=== PATIENT | female | born 1995 | race Caucasian/White ===

== ENCOUNTER 2022-04-16 19:02 | Emergency (ER) | payer SELFPAY ==
[2022-04-16 20:25] LABS: Absolute Lymphocytes (CBC) 3.3 K/uL (0.7-4.9); Lymphocytes % 33.8 % (15.3-44.8); MCV 91.5 fL (80-100); RBC Red Blood Cell Count 3.72 M/uL (3.86-4.86)
[2022-04-16 20:32] LABS: ALT/SGPT 16 U/L (12-78); AST/SGOT 14 U/L (15-37); Albumin 4.3 g/dL (3.4-5.0); Alkaline Phosphatase 63 U/L (45-117); BUN Blood Urea Nitrogen 24 mg/dL (7-18); Bicarbonate 28 mmol/L (21-32); Bilirubin Total 0.2 mg/dL (0.2-1.0); Glomerular Filtration Rate 87 ml/min (=/>90); Glucose Level 90 mg/dL (74-106); Magnesium 2.1 mg/dL (1.8-2.4); NT PRO-BNP 48 pg/mL (<125); Potassium 3.5 mmol/L (3.5-5.1); Protein, Total 7.1 g/dL (6.4-8.2); Sodium Level 137 mmol/L (136-145)
[2022-04-16 20:38] LABS: Protime INR 1.12
[2022-04-16 20:39] LABS: Bilirubin Direct < 0.1 mg/dL (0-0.2); Troponin High Sensitivity < 3.0 pg/mL (<58.9)
--- NOTE | 2022-04-16 20:40 | RAD REPORT ---
EXAM DESCRIPTION: RAD - Chest Single View - 04/16/2022 8:18 pm CLINICAL HISTORY: CHEST PAIN COMPARISON: No comparisons FINDINGS: Lines: None. Lungs: No evidence of edema or pneumonia. Pleural: No significant pleural effusions or pneumothorax. Cardiac: The heart size is within normal limits. Mediastinum: Within normal limits. Bones: No acute fractures. Other: None IMPRESSION: No acute cardiopulmonary disease.
--- NOTE | 2022-04-16 21:33 | ER ---
Nurse's Notes [facility] Name: Elena Prescott Age: 26 yrs Sex: Female : 1995 Arrival Date: 04/16/2022 Time: 19:08 Bed 11 Private MD: Diagnosis: Chest pain, unspecified Presentation: 04/16 19:20 Chief complaint: Patient states: 1200 today - "I was at work, I began to feel SOB and ld1 having chest pain." Upon arrival to ER pt SpO2 100% RA. Reporting dull continuous chest pain at this time. 19:27 Coronavirus screen: At this time, the client does not indicate any symptoms associated ld1 with coronavirus-19. Ebola Screen: No symptoms or risks identified at this time. Initial Sepsis Screen: Does the patient meet any 2 criteria? No. Patient's initial sepsis screen is negative. Does the patient have a suspected source of infection? No. Patient's initial sepsis screen is negative. Risk Assessment: Do you want to hurt yourself or someone else? Patient reports no desire to harm self or others. Onset of symptoms was April 16, 2022. 19:27 Method Of Arrival: Ambulatory ld1 19:27 Acuity: MILDRED 3 ld1 Triage Assessment: 19:28 General: Appears in no apparent distress. comfortable, Behavior is cooperative, ld1 appropriate for age, anxious. Pain: Complains of pain in chest Pain does not radiate. Pain currently is 4 out of 10 on a pain scale. Quality of pain is described as throbbing, Pain began suddenly, Is continuous. EENT: No signs and/or symptoms were reported regarding the EENT system. Neuro: Level of Consciousness is awake, alert, obeys commands, Oriented to person, place, time, situation. Cardiovascular: Capillary refill < 3 seconds Patient's skin is warm and dry. Respiratory: Reports shortness of breath at rest on exertion Airway is patent Respiratory effort is even, unlabored. Respiratory: Onset: The symptoms/episode began/occurred today, the patient has mild shortness of breath. GI: Abdomen is flat, non-distended. : No signs and/or symptoms were reported regarding the genitourinary system. Derm: No signs and/or symptoms reported regarding the dermatologic system. Musculoskeletal: Reports pain in chest. 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 - Social history:: Smoking status: Reported history of juuling and/or vaping. Patient/guardian denies using alcohol. Screenin:08 Abuse screen: Denies threats or abuse. Denies injuries from another. Nutritional eh3 screening: No deficits noted. Tuberculosis screening: No symptoms or risk factors identified. Fall Risk None identified. Assessment: 20:08 General: Appears in no apparent distress. Behavior is calm, cooperative. Pain: eh3 Complains of pain in chest. Neuro: Level of Consciousness is awake, alert. Cardiovascular: Reports chest pain, Rhythm is regular. Respiratory: Reports shortness of breath Respiratory effort is even, unlabored, Breath sounds are clear. Vital Signs: 19:27 BP 128 / 78; Pulse 105; Resp 18; Temp 98.4(O); Pulse Ox 100% on R/A; Weight 45.36 kg; ld1 Height 5 ft. 1 in. (154.94 cm); Pain 4/10; 21:49 BP 101 / 72; Pulse 80; Resp 21 S; Pulse Ox 100% on R/A; as6 19:27 Body Mass Index 18.89 (45.36 kg, 154.94 cm) ld1 ED Course: 19:08 Patient arrived in ED. bp1 19:09 Lorenzo Ramirez PA is PHCP. jmm 19:09 Jovany Clemente MD is Attending Physician. jmm 19:20 Elías Cobian, TANK is Primary Nurse. as6 19:27 Triage completed. ld1 19:28 Arm band placed on right wrist. ld1 20:00 Inserted saline lock: 20 gauge in right antecubital area, using aseptic technique. eh3 Blood collected. 20:07 D-Dimer Sent. eh3 20:07 Basic Metabolic Panel Sent. eh3 20:07 CBC with Diff Sent. eh3 20:07 LFT's Sent. eh3 20:07 Magnesium Sent. eh3 20:07 NT PRO-BNP Sent. eh3 20:07 PT-INR Sent. eh3 20:07 Troponin HS Sent. eh3 20:08 Bed in low position. Call light in reach. Side rails up X 1. Client placed on eh3 continuous cardiac and pulse oximetry monitoring. NIBP monitoring applied. 20:20 XRAY Chest (1 view) In Process Unspecified. EDMS 21:33 Herb Bahena MD is Referral Physician. jmm 21:47 No provider procedures requiring assistance completed. IV discontinued, intact, as6 bleeding controlled, No redness/swelling at site. Pressure dressing applied. Administered Medications: 21:47 Drug: Ketorolac 30 mg Route: IVP; Site: right antecubital; as6 21:47 Follow up: Response: No adverse reaction as6 Medication: 21:48 VIS not applicable for this client. as6 Outcome: 21:33 Discharge ordered by . jmm 21:48 Discharged to home ambulatory. as6 21:48 Condition: stable 21:48 Discharge instructions given to patient, Instructed on discharge instructions, follow up and referral plans. medication usage, Demonstrated understanding of instructions, follow-up care, medications, Prescriptions given X 3. 21:49 Patient left the ED. as6 Signatures: Dispatcher [employer] EDMS Lorenzo Ramirez PA PA jmm Paniauga, Brittany bp1 Dibbern, Lauren, TANK RN ld1 Elías Cobian RN RN as6 Delicia Jj RN RN eh3
--- NOTE | 2022-04-16 21:34 | EDPHYS ---
Physician Documentation [facility] Name: Elena Prescott Age: 26 yrs Sex: Female : 1995 Arrival Date: 04/16/2022 Time: 19:08 Bed 11 Private MD: BRADLEY Physician Jovany Clemente HPI: 04/16 21:25 This 26 yrs old Female presents to ER via Ambulatory with complaints of Breathing jmm Difficulty, Doesn't Feel Right. 23:17 This is a 26-year-old female with history of ADD that presents emerged part with [facility] complaints of chest pain and palpitations beginning earlier today. Describes the pain as an ache. States she also has shortness of breath and numbness to her face, both hands. Denies any history of anxiety.. 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 - Social history:: Smoking status: Reported history of juuling and/or vaping. Patient/guardian denies using alcohol. ROS: 23:17 Constitutional: Negative for fever, chills, and weight loss. jmm 23:17 Cardiovascular: Positive for chest pain. 23:17 Respiratory: Positive for shortness of breath. 23:17 Neuro: Positive for numbness. 23:17 All other systems are negative. Exam: 21:26 ECG was reviewed by the Attending Physician. jmm 23:17 Constitutional: This is a well developed, well nourished patient who is awake, alert, jmm and in no acute distress. Head/Face: atraumatic. Eyes: EOMI, no conjunctival erythema appreciated ENT: Moist Mucus Membranes Neck: Trachea midline, Supple Chest/axilla: Normal chest wall appearance and motion. Cardiovascular: Regular rate and rhythm. No edema appreciated Respiratory: Normal respirations, no respiratory distress appreciated Abdomen/GI: Non distended Back: Normal ROM Skin: General appearance color normal MS/ Extremity: Moves all extremities, no obvious deformities appreciated, no edema noted to the lower extremities Neuro: Awake and alert Psych: Behavior is normal, Mood is normal, Patient is cooperative and pleasant Vital Signs: 19:27 BP 128 / 78; Pulse 105; Resp 18; Temp 98.4(O); Pulse Ox 100% on R/A; Weight 45.36 kg; ld1 Height 5 ft. 1 in. (154.94 cm); Pain 4/10; 21:49 BP 101 / 72; Pulse 80; Resp 21 S; Pulse Ox 100% on R/A; as6 19:27 Body Mass Index 18.89 (45.36 kg, 154.94 cm) ld1 MDM: 19:21 Patient medically screened. janes 21:32 Data reviewed: vital signs, nurses notes. Counseling: I had a detailed discussion with [facility] the patient and/or guardian regarding: the historical points, exam findings, and any diagnostic results supporting the discharge/admit diagnosis, lab results, radiology results, the need for outpatient follow up, to return to the emergency department if symptoms worsen or persist or if there are any questions or concerns that arise at home. 21:32 ED course: Labs and imaging studies were negative. Patient advised to follow with [facility] cardiology for further evaluation. I do not currently suspect ACS or PE. Patient is advised to return to the ER if symptoms worsen.. 04/16 19:37 Order name: Basic Metabolic Panel; Complete Time: 20:43 [facility] 04/16 19:37 Order name: CBC with Diff; Complete Time: 20:43 [facility] 04/16 19:37 Order name: LFT's; Complete Time: 20:43 [facility] 04/16 19:37 Order name: Magnesium; Complete Time: 20:43 [facility] 04/16 19:37 Order name: NT PRO-BNP; Complete Time: 20:43 [facility] 04/16 19:37 Order name: PT-INR; Complete Time: 20:43 [facility] 04/16 19:37 Order name: Troponin HS; Complete Time: 20:43 [facility] 04/16 19:37 Order name: XRAY Chest (1 view); Complete Time: 20:43 [facility] 04/16 19:37 Order name: EKG; Complete Time: 19:38 [facility] 04/16 19:37 Order name: Cardiac monitoring; Complete Time: 20:07 [facility] 04/16 19:37 Order name: EKG - Nurse/Tech; Complete Time: 20: [facility] 04/16 19:37 Order name: IV Saline Lock; Complete Time: 20: [facility] 04/16 19:37 Order name: D-Dimer; Complete Time: 20: [facility] 04/16 19:37 Order name: Labs collected and sent; Complete Time: 20: [facility] 04/16 19:37 Order name: O2 Per Protocol; Complete Time: 20: [facility] 04/16 19:37 Order name: O2 Sat Monitoring; Complete Time: : [facility] EC: Rate is 88 beats/min. Rhythm is regular. QRS [place] is Normal. LA interval is normal. QRS jmm interval is normal. QT interval is normal. No Q waves. T waves are Normal. No ST changes noted. Reviewed by me. Administered Medications: :47 Drug: Ketorolac 30 mg Route: IVP; Site: right antecubital; as6 21:47 Follow up: Response: No adverse reaction as6 Disposition Summary: 04/16/22 21:33 Discharge Ordered Location: Home [facility] Condition: Stable [facility] Diagnosis - Chest pain, unspecified [facility] Followup: [facility] - With: Herb Bahena MD - When: 2 - 3 days - Reason: Recheck today's complaints, Continuance of care, Re-evaluation by your physician Discharge Instructions: - Discharge Summary Sheet [facility] - Nonspecific Chest Pain, Adult [facility] Forms: - Medication Reconciliation Form [facility] - Thank You Letter [facility] - Antibiotic Education [facility] - Prescription Opioid Use [facility] Prescriptions: - Pepcid 20 mg Oral Tablet - take 1 tablet by ORAL route every 12 hours for 10 days; 20 tablet; Refills: 0, [facility] Product Selection Permitted - Diclofenac Sodium 75 mg Oral Tablet Sustained Release - take 1 tablet by ORAL route 2 times per day; 30 tablet; Refills: 0, Product [facility] Selection Permitted - orphenadrine citrate 100 mg Oral Tablet Sustained Release - take 1 tablet by ORAL route 2 times per day As needed; 20 tablet; Refills: 0, [facility] Product Selection Permitted Signatures: Dispatcher [employer] Jovany Azul MD MD cha Mickail, Joel, PA PA [facility] Demi Hahn RN RN ld1 Elías Cobian RN RN as6
[2022-04-16] MEDS ORDERED: KETOROLAC 30 MG/ML INJ ONE (21:52)
[2022-04-16 22:37] VITALS: TEMP 98.4; O2SAT 100
[2022-04-16 22:53] VITALS: BP 101/72
== END 2022-04-16 21:49 | disposition home or self-care (01) ==
LOC: ER 19:02
DX: R07.89 Other chest pain (principal); R06.02 Shortness of breath
CPT/HCPCS: 36415; 71045; 80048; 80076; 83735; 83880; 84484; 85025; 85379; 85610

== ENCOUNTER 2022-09-12 20:33 | Emergency (ER) | payer SELFPAY ==
[2022-09-12] MEDS ORDERED: ONDANSETRON 4 MG (ODT) TAB ONE (22:01)
[2022-09-12] MEDS ORDERED: MAGNES/ALUMIN/SIMET 30ML UCUP ONE (22:01)
[2022-09-12] MEDS ORDERED: ACETAMINOPHEN 500 MG TAB ONE (22:01)
[2022-09-12] MEDS ORDERED: LIDOCAINE VISCOUS 2% SOLN 15 ML UDC ONE (22:01)
--- NOTE | 2022-09-12 22:09 | ER ---
Nurse's Notes [facility] Name: Elena Prescott Age: 26 yrs Sex: Female : 1995 Arrival Date: 09/12/2022 Time: 20:38 Bed 13 Private MD: Diagnosis: Contact with and (suspected) exposure to hazardous, chiefly nonmedicinal, chemicals Presentation: 09/12 21:08 Chief complaint: Patient states: "Yesterday at work I inhaled some floorhand, It is vc1 called Arapaho's solution, it is like a chlorine salt, my boss said I should be fine but now I am having a migraine, nausea, vomiting, my nose all the way to my throat ring and abdominal discomfort.". Coronavirus screen: Vaccine status: Patient reports being unvaccinated. Client denies travel out of the [place] in the last 14 days. At this time, the client does not indicate any symptoms associated with coronavirus-19. Ebola Screen: No symptoms or risks identified at this time. 21:08 Method Of Arrival: Ambulatory vc1 21:35 Initial Sepsis Screen: Does the patient meet any 2 criteria? No. Patient's initial aa9 sepsis screen is negative. Does the patient have a suspected source of infection? No. Patient's initial sepsis screen is negative. Risk Assessment: Do you want to hurt yourself or someone else? Patient reports no desire to harm self or others. Onset of symptoms was September 12, 2022. 21:35 Acuity: MILDRED 3 aa9 Triage Assessment: 21:31 General: Appears in no apparent distress. uncomfortable, slender, Behavior is vc1 cooperative, anxious. Pain: Complains of pain in forehead, bridge of nose, apex of the nose and left upper quadrant. EENT: Reports nasal and throat burning. Neuro: No deficits noted. Cardiovascular: No deficits noted. Respiratory: Airway is patent Respiratory effort is even, unlabored, Respiratory pattern is regular, symmetrical. GI: Reports lower abdominal pain, nausea, vomiting. : No deficits noted. No signs and/or symptoms were reported regarding the genitourinary system. Derm: No deficits noted. No signs and/or symptoms reported regarding the dermatologic system. Musculoskeletal: No deficits noted. No signs and/or symptoms reported regarding the musculoskeletal system. 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 - Social history:: Smoking status: Reported history of juuling and/or vaping. Screenin:35 [facility] ED Fall Risk Assessment (Adult) History of falling in the last 3 months, aa9 including since admission No falls in past 3 months (0 pts) Confusion or Disorientation No (0 pts) Intoxicated or Sedated No (0 pts) Impaired Gait No (0 pts) Mobility Assist Device Used No (0 pt) Altered Elimination No (0 pt) Score/Fall Risk Level 0 - 2 = Low Risk Oriented to surroundings, Maintained a safe environment. Abuse screen: Denies threats or abuse. Denies injuries from another. Nutritional screening: Has had N/V for 3 or more days. Tuberculosis screening: No symptoms or risk factors identified. Assessment: 21:13 Reassessment: poison controlled notified spoke to [place], suggested supportive care for aa9 headache and vomiting, most likely unrelated to the event, . 22:21 Reassessment: Patient appears in no apparent distress at this time. Patient is alert, aa9 oriented x 3, equal unlabored respirations, skin warm/dry/pink. Patient denies pain at this time. Patient states feeling better. Vital Signs: 21:30 BP 108 / 73; Pulse 85; Resp 20 S; Pulse Ox 100% on R/A; aa9 21:33 BP 116 / 87; Pulse 86; Resp 20; Temp 98.4; Pulse Ox 100% ; vc1 21:45 BP 104 / 76; Pulse 82; Resp 19 S; Pulse Ox 98% on R/A; aa9 ED Course: 20:38 Patient arrived in ED. ja2 20:59 Giancarlo Cross NP is PHCP. pm1 20:59 Torrey Castro MD is Attending Physician. pm1 21:08 Lisa Cardoza, TANK is Primary Nurse. aa9 21:31 Arm band placed on right wrist. vc1 21:36 Triage completed. aa9 21:36 Patient has correct armband on for positive identification. Bed in low position. Call aa9 light in reach. Adult w/ patient. 22:20 No provider procedures requiring assistance completed. Patient did not have IV access aa9 during this emergency room visit. Administered Medications: 22:06 Drug: GI Cocktail without - (Maalox Suspension 30 ml, Lidocaine Liquid 2 % 15 aa9 ml) Route: PO; 22:06 Drug: Ondansetron 4 mg Route: PO; aa9 22:06 Drug: Tylenol 500 mg Route: PO; aa9 Medication: 21:36 VIS not applicable for this client. aa9 Outcome: 22:08 Discharge ordered by MD. pm1 22:21 Discharged to home ambulatory, with family. aa9 22:21 Condition: stable 22:21 Condition: stable 22:21 Discharge instructions given to patient, Instructed on discharge instructions, follow up and referral plans. medication usage, Demonstrated understanding of instructions, follow-up care, medications, Prescriptions given X 1. 22:21 Patient left the ED. aa9 Signatures: Giancarlo Cross NP [employer] pm1 Jennifer Shook Vanessa, RN RN vc1 Lisa Cardoza, RN RN aa9 Corrections: (The following items were deleted from the chart) 21:31 21:30 Social history: Smoking status: Patient denies any tobacco usage or history of. vc1 vc1
--- NOTE | 2022-09-12 22:10 | EDPHYS ---
Physician Documentation [facility] Name: Elena Prescott Age: 26 yrs Sex: Female : 1995 Arrival Date: 09/12/2022 Time: 20:38 Bed 13 Private MD: ED Physician Torrey Castro HPI: 09/12 21:14 This 26 yrs old Female presents to ER via Ambulatory with complaints of Chemical pm1 Exposure. 21:14 Patient presents to the ER with complaints of exposure to viking solutions cleaning pm1 agent. Patient was preparing this solution to mix it and accidentally inhaled the dust.. Onset: The symptoms/episode began/occurred yesterday. Severity of symptoms: in the emergency department the symptoms have improved. The patient has not experienced similar symptoms in the past. The patient has not recently seen a physician. Patient reports initially having sensation of burning in right nostril, coughing, sore throat, chest pain with inhalation yesterday. Patient reports symptoms today are headache and sore throat. 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 - Social history:: Smoking status: Reported history of juuling and/or vaping. ROS: 21:14 Constitutional: Negative for fever, chills, and weight loss. pm1 21:14 Cardiovascular: Negative for chest pain, palpitations, and edema, Respiratory: Negative for shortness of breath, cough, wheezing, and pleuritic chest pain, Abdomen/GI: Negative for abdominal pain, nausea, vomiting, diarrhea, and constipation, Back: Negative for injury and pain, MS/Extremity: Negative for injury and deformity, Skin: Negative for injury, rash, and discoloration. 21:14 ENT: Positive for sore throat. 21:14 Neuro: Positive for headache. 21:14 All other systems are negative. Exam: 21:14 Constitutional: This is a well developed, well nourished patient who is awake, alert, pm1 and in no acute distress. Head/Face: Normocephalic, atraumatic. Eyes: Pupils equal round and reactive to light, extra-ocular motions intact. Lids and lashes normal. Conjunctiva and sclera are non-icteric and not injected. Cornea within normal limits. Periorbital areas with no swelling, redness, or edema. 21:14 Back: No spinal tenderness. No costovertebral tenderness. Full range of motion. Skin: Warm, dry with normal turgor. Normal color with no rashes, no lesions, and no evidence of cellulitis. MS/ Extremity: Pulses equal, no cyanosis. Neurovascular intact. Full, normal range of motion. 21:14 ENT: Exam is negative for acute changes, Mouth: no acute changes, Lips: normal, moist, Oral mucosa: normal, pink and intact, moist, Posterior pharynx: no acute changes. 21:14 Cardiovascular: Exam negative for acute changes, Rate: normal, Rhythm: regular, Pulses: no pulse deficits are appreciated. 21:14 Respiratory: Exam negative for acute changes, respiratory distress, shortness of breath, Breath sounds: are clear throughout. 21:14 Abdomen/GI: Exam negative for acute changes, Inspection: abdomen appears normal, Palpation: abdomen is soft and non-tender, in all quadrants. 21:14 Neuro: Exam negative for acute changes, Orientation: is normal, Mentation: is normal, Motor: is normal, moves all fours, Gait: is steady, at a normal pace, without difficulty. Vital Signs: 21:30 BP 108 / 73; Pulse 85; Resp 20 S; Pulse Ox 100% on R/A; aa9 21:33 BP 116 / 87; Pulse 86; Resp 20; Temp 98.4; Pulse Ox 100% ; vc1 21:45 BP 104 / 76; Pulse 82; Resp 19 S; Pulse Ox 98% on R/A; aa9 MDM: 21:00 Patient medically screened. pm1 22:05 Differential diagnosis: chemical exposure, pharyngitis, headache, URI. pm1 22:05 Data reviewed: vital signs. pm1 22:05 Counseling: I had a detailed discussion with the patient and/or guardian regarding: the pm1 historical points, exam findings, and any diagnostic results supporting the discharge/admit diagnosis, the need for outpatient follow up, to return to the emergency department if symptoms worsen or persist or if there are any questions or concerns that arise at home, recommendations by poison control. 22:05 Differential Diagnosis pharyngitis, headache, exposure to chemical. pm1 22:25 ED course: Patient explained recommendations from poison control. Symptomatic treatment pm1 for headache and sore throat which they believe is unlikely related to the chemical exposure. Patient given Tylenol for pain, GI cocktail for her sore throat which she reports improved her symptoms. Patient did report some nausea and I will treat with Zofran as needed. 09/12 21:14 Order name: Natasha. Order: Contact poison control; Complete Time: 21:17 pm1 Administered Medications: 22:06 Drug: GI Cocktail without - (Maalox Suspension 30 ml, Lidocaine Liquid 2 % 15 aa9 ml) Route: PO; 22:06 Drug: Ondansetron 4 mg Route: PO; aa9 22:06 Drug: Tylenol 500 mg Route: PO; aa9 Disposition: 09/13 04:30 I reviewed the patient's care provided by the Advanced Practice Provider and agree with bs3 the diagnosis and treatment plan. Disposition Summary: 09/12/22 22:08 Discharge Ordered Location: Home pm1 Problem: new pm1 Symptoms: have improved pm1 Condition: Stable pm1 Diagnosis - Contact with and exposure to nonhazardous cleaning solution pm1 - Contact with and (suspected) exposure to hazardous, chiefly nonmedicinal, chemicals pm1 Followup: pm1 - With: Emergency Department - When: As needed - Reason: Worsening of condition Followup: pm1 - With: Private Physician - When: 2 - 3 days - Reason: Recheck today's complaints, Continuance of care, Re-evaluation by your physician Discharge Instructions: - Discharge Summary Sheet pm1 - Chemical Inhalation Injury, Adult pm1 Forms: - Medication Reconciliation Form pm1 - Thank You Letter pm1 - Antibiotic Education pm1 - Prescription Opioid Use pm1 Prescriptions: - Zofran 4 mg Oral Tablet - take 1 tablet by ORAL route every 12 hours As needed; 6 tablet; Refills: 0, pm1 Product Selection Permitted Signatures: Giancarlo Cross NP FISH CAKE MAKER pm1 Dania Lyman RN RN vc1 Lisa Cardoza RN RN aa9 Torrey Castro MD MD bs3 Corrections: (The following items were deleted from the chart) 09/12 21:31 21:30 Social history: Smoking status: Patient denies any tobacco usage or history of. vc1 vc1
[2022-09-13 01:03] VITALS: TEMP 98.4
[2022-09-13 01:08] VITALS: BP 104/76; O2SAT 98
== END 2022-09-12 22:21 | disposition home or self-care (01) ==
LOC: ER 20:33
DX: Z77.098 Contact with and (suspected) exposure to other hazardous, chiefly nonmedicinal, chemicals (principal)
CPT/HCPCS: 99283; Q0162

== ENCOUNTER 2023-04-22 06:55 | Emergency (ER) | payer BC ==
--- NOTE | 2023-04-22 07:45 | RAD REPORT ---
EXAM DESCRIPTION: CT - Head Brain Wo Cont - 04/22/2023 7:38 am CLINICAL HISTORY: DIZZINESS Headache, drowsiness COMPARISON: No comparisons TECHNIQUE: All CT scans are performed using dose optimization technique as appropriate and may inclu de automated exposure control or mA/KV adjustment according to patient size. FINDINGS: No intracranial hemorrhage, hydrocephalus or extra-axial fluid collection.No areas of brai n edema or evidence of midline shift. The paranasal sinuses and mastoids are clear. The calvarium is intact. IMPRESSION: No acute intracranial abnormality.
[2023-04-22] MEDS ORDERED: NA CHLORIDE 0.9% 1,000 ML ONE (07:55)
--- NOTE | 2023-04-22 08:00 | RAD REPORT ---
EXAM DESCRIPTION: RAD - Chest Single View - 04/22/2023 7:48 am CLINICAL HISTORY: dizziness Chest pain. COMPARISON: Chest Single View dated 04/16/2022 FINDINGS: Portable technique limits examination quality. The lungs are grossly clear. The heart is normal in size. No displaced fractures. IMPRESSION: No acute intrathoracic process suspected.
[2023-04-22 08:18] LABS: Absolute Lymphocytes (CBC) 2.5 K/uL (0.7-4.9); Hematocrit 39.5 % (36.0-45.0); Lymphocytes % 32.3 % (15.3-44.8); MCV 92.4 fL (80-100); MPV 8.1 fL (7.6-11.3); Platelets 275 thou/uL (152-406); RBC Red Blood Cell Count 4.27 M/uL (3.86-4.86)
[2023-04-22 08:19] LABS: Urine Bilirubin NEGATIVE (Negative); Urine Blood Negative (Negative); Urine Clarity Clear (Clear); Urine Color Colorless (Yellow); Urine Glucose NEGATIVE (Negative); Urine Protein NEGATIVE (Negative); Urine Urobilinogen Normal (Normal); Urine pH 7.5 (5.0-7.0)
[2023-04-22 08:26] LABS: Protime INR 1.11
[2023-04-22 08:41] LABS: ALT/SGPT 16 U/L (13-56); AST/SGOT 15 U/L (15-37); Albumin 4.5 g/dL (3.4-5.0); Alkaline Phosphatase 65 U/L (45-117); BUN Blood Urea Nitrogen 11 mg/dL (7-18); Bicarbonate 28 mEq/L (21-32); Bilirubin Direct 0.2 mg/dL (0-0.2); Bilirubin Indirect, Calculated 0.4 mg/dL (0.2-0.8); Bilirubin Total 0.6 mg/dL (0.2-1.0); Glomerular Filtration Rate 92 ml/min (=/>90); Glucose Level 87 mg/dL (74-106); Potassium 3.8 mEq/L (3.5-5.1); Protein, Total 7.4 g/dL (6.4-8.2); Sodium Level 137 mEq/L (136-145)
[2023-04-22 08:43] LABS: Troponin High Sensitivity < 3.0 pg/mL (<58.9)
[2023-04-22 08:48] LABS: SARS-CoV-2 Antigen Rapid Res Negative (Negative)
--- NOTE | 2023-04-22 09:52 | EDPHYS ---
Physician Documentation [facility] Name: Elena Prescott Age: 27 yrs Sex: Female : 1995 Arrival Date: 04/22/2023 Time: 06:55 Bed 5 Private MD: ED Physician Brigido Roberts HPI: 04/22 07:46 This 27 yrs old Female presents to ER via Ambulatory with complaints of Weakness, rn dizziness. 07:46 The patient presents with dizziness, feeling faint, generalized weakness, rn lightheadedness. Onset: The symptoms/episode began/occurred last night. Modifying factors: The symptoms are alleviated by nothing, the symptoms are aggravated by standing up, changing position. Associated signs and symptoms: Pertinent negatives: abdominal pain, ataxia, chest pain, confusion, focal weakness, head injury, seizure, shortness of breath, syncope, tingling, vomiting. Severity of symptoms: At their worst the symptoms were mild in the emergency department the symptoms are unchanged. The patient has not experienced similar symptoms in the past. Patient reports feeling dizzy and lightheaded since last night. Began after eating a meal with spicy food. Denies blood in stool or dark black stool. No fever. No chills. Reports headache/malaise/fatigue/dizziness/nausea. No head injury. 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 No chest pain or shortness of breath. No abdominal pain.. Historical: - Allergies: 07:08 No Known Allergies; ll1 - PMHx: 07:08 ADD; ll1 - PSHx: 07:08 None; ll1 - Immunization history:: Adult Immunizations up to date. - Social history:: Smoking status: Reported history of juuling and/or vaping. - Family history:: not pertinent. - Hospitalizations: : No recent hospitalization is reported. ROS: 07:46 Constitutional: Negative for fever, chills, and weight loss, Eyes: Negative for injury, rn pain, redness, and discharge, Neck: Negative for injury, pain, and swelling, Cardiovascular: Negative for chest pain, palpitations, and edema, Respiratory: Negative for shortness of breath, cough, wheezing, and pleuritic chest pain, Abdomen/GI: Positive for nausea, negative for abdominal pain Back: Negative for injury and pain, MS/Extremity: Negative for injury and deformity, Skin: Negative for injury, rash, and discoloration, Neuro: Positive for generalized weakness Exam: 07:46 Constitutional: This is a well developed, well nourished patient who is awake, alert, rn and in no acute distress. Ambulatory to room without difficulty or assistance Head/Face: Normocephalic, atraumatic. Eyes: Pupils equal round and reactive to light, extra-ocular motions intact. ENT: Dry mucous membranes, no stridor Neck: No Meningismus. Cardiovascular: Regular rate and rhythm. No pulse deficits. Respiratory: No increased work of breathing, no retractions or nasal flaring. Abdomen/GI: Soft, non-tender Skin: Warm, dry MS/ Extremity: Pulses equal, no cyanosis. Neurovascular intact. Full, normal range of motion. Equal circumference. Neuro: Awake and alert, GCS 15, oriented to person, place, time, and situation. Cranial nerves II-XII grossly intact. Motor strength 5/5 in all extremities. Sensory grossly intact. Cerebellar exam normal. Normal gait. 08:40 ECG was reviewed by the Attending Physician. rn Vital Signs: 07:08 BP 115 / 83; Pulse 83; Resp 16; Temp 98.5; Pulse Ox 100% on R/A; ll1 08:18 BP 123 / 79 Supine; Pulse 76; Resp 19; Pulse Ox 100% ; ld1 08:20 BP 114 / 75 Sitting; Pulse 74; Resp 19; Pulse Ox 100% on R/A; ld1 08:22 BP 121 / 81 Standing; Pulse 74; Resp 16; Pulse Ox 100% on R/A; ld1 09:02 BP 103 / 84; Pulse 63; Resp 18; Pulse Ox 100% on R/A; ld1 NIH Stroke Scale Scores: 08:36 NIHSS Score: 0 ld1 MDM: 07:02 Patient medically screened. rn 09:35 Differential diagnosis: cardiac arrhythmia, generalized weakness, hyperventilation, rn hypovolemia, idiopathic dizziness, near-syncope, vertigo. Data reviewed: vital signs, nurses notes, lab test result(s), EKG, radiologic studies, CT scan, plain films, and as a result, I will discharge patient. Counseling: I had a detailed discussion with the patient and/or guardian regarding the historical points, exam findings, and any diagnostic results supporting the discharge/admit diagnosis, lab results, radiology results, the need for outpatient follow up, to return to the emergency department if symptoms worsen or persist or if there are any questions or concerns that arise at home. Special discussion: I discussed with the patient/guardian in detail that at this point there is no indication for admission to the hospital. It is understood, however, that if the symptoms persist or worsen the patient needs to return immediately for re-evaluation. 04/22 07:13 Order name: Basic Metabolic Panel; Complete Time: 08:46 04/22 07:13 Order name: CBC with Diff; Complete Time: 08:04/22 07:13 Order name: Hepatic Function; Complete Time: 08:46 04/22 07:13 Order name: Magnesium; Complete Time: 08:04/22 07:13 Order name: Test, Urine; Complete Time: 08:04/22 07:13 Order name: Protime (+inr); Complete Time: 08:46 04/22 07:13 Order name: Ptt, Activated; Complete Time: 08:04/22 07:13 Order name: Troponin High Sensitivity; Complete Time: 08:04/22 07:13 Order name: Urinalysis w/ reflexes; Complete Time: 08:46 04/22 07:13 Order name: SARS RAPID; Complete Time: 08:51 04/22 07:13 Order name: Flu; Complete Time: 08:51 04/22 07:13 Order name: CT Head Brain wo Cont; Complete Time: 08:11 04/22 07:13 Order name: Chest Single View XRAY; Complete Time: 08:11 04/22 07:13 Order name: EKG; Complete Time: 07:14 04/22 07:13 Order name: Cardiac monitoring; Complete Time: 08:04 04/22 07:13 Order name: EKG - Nurse/Tech; Complete Time: 08:05 04/22 07:13 Order name: IV Saline Lock; Complete Time: 08:04 04/22 07:13 Order name: Labs collected and sent; Complete Time: 08:04 04/22 07:13 Order name: O2 Per Protocol; Complete Time: 07:37 04/22 07:13 Order name: O2 Sat Monitoring; Complete Time: 07:37 04/22 07:13 Order name: Orthostatics; Complete Time: 08:36 rn EC:40 Rate is 76 beats/min. Rhythm is regular. Right axis deviation noted. QRS is positive in rn lead aVF and negative in lead I. IL interval is normal. QRS interval is normal. QT interval is normal. No Q waves. T waves are Normal. No ST changes noted. Clinical impression: NSR w/ Non-specific ST/T Changes. Reviewed by me. Administered Medications: 08:17 Drug: NS 0.9% IV 1000 ml Route: IV; Rate: 1000 ml; Site: right antecubital; ld1 Disposition Summary: 04/22/23 09:51 Discharge Ordered Location: Home rn Problem: new rn Symptoms: have improved rn Condition: Stable rn Diagnosis - Dizziness and giddiness rn Followup: rn - With: Private Physician - When: As needed - Reason: Recheck today's complaints, Re-evaluation by your physician Discharge Instructions: - Discharge Summary Sheet rn - Dizziness rn Forms: - Medication Reconciliation Form rn - Thank You Letter rn - Antibiotic real estate intern - Prescription Opioid Use rn - Patient Portal Instructions rn - Leadership Thank You Letter rn - Work release form ll1 NIH Stroke Scale - NIH Stroke Score Date: 04/22/2023 Time: 08:36 Total Score = 0 10. Dysarthria (speech clarity - read or repeat words) - 0(Normal) 11. Extinction and Inattention (visual/tactile/auditory/spatial/personal) - 0(No abnormality) 1a. Level of Consciousness (LOC) - 0(Alert) 1b. Level of Consciousness (LOC) (Month \T\ Age) - 0(Both) 1c. LOC Commands (Open \T\ Closes Eyes/Recruiter Account Manager) - 0(Both) 2. Best Gaze (Lateral Gaze Paresis) - 0(Normal) 3. Visual Field Loss - 0(No visual loss) 4. Facial Palsy - 0(Normal) 5a. Left Arm: Motor (10-second hold) - 0(No drift) 5b. Right Arm: Motor (10-second hold) - 0(No drift) 6a. Left Leg: Motor (5-second hold - always test supine) - 0(No drift) 6b. Right Leg: Motor (5-second hold - always test supine) - 0(No drift) 7. Limb Ataxia (finger/nose \T\ heel/frazier - test with eyes open) - 0(Absent) 8. Sensory Loss (pinprick arms/legs/face) - 0(Normal) 9. Best Language: Aphasia (description/naming/reading) - 0(No aphasia) Initials: ld1 Signatures: Dispatcher [employer] Brigido Corea MD MD rn Lewis, Lynsay, RN RN ll1 Demi Frederick RN RN ld1
--- NOTE | 2023-04-22 09:52 | ER ---
Nurse's Notes [facility] Name: Elena Prescott Age: 27 yrs Sex: Female : 1995 Arrival Date: 04/22/2023 Time: 06:55 Bed 5 Private MD: Diagnosis: Dizziness and giddiness Presentation: 04/22 07:08 Chief complaint: Patient states: Feels weak, imbalanced since last night. States eats ll1 too much salty foods, some nausea. Coronavirus screen: Client denies travel out of the [place] in the last 14 days. At this time, the client does not indicate any symptoms associated with coronavirus-19. Ebola Screen: Patient denies travel to an Ebola-affected area in the 21 days before illness onset. No acute neurological deficit is noted. Initial Sepsis Screen: Does the patient meet any 2 criteria? No. Patient's initial sepsis screen is negative. Does the patient have a suspected source of infection? No. Patient's initial sepsis screen is negative. Risk Assessment: Do you want to hurt yourself or someone else? Patient reports no desire to harm self or others. Onset of symptoms. 07:08 Method Of Arrival: Ambulatory ll1 07:08 Acuity: MILDRED 3 ll1 Triage Assessment: 07:11 General: Appears in no apparent distress. Behavior is calm, cooperative, appropriate ll1 for age. Pain: Denies pain. EENT:. Neuro: Reports dizziness, weakness. Cardiovascular: No deficits noted. Stroke Activation: Symptom onset > 6 hours Physician: Stroke Attending; Name: ; Notified At: ; Arrived At: Physician: Chief Stroke Resident; Name: ; Notified At: ; Arrived At: Physician: Stroke Resident; Name: ; Notified At: ; Arrived At: Physician: ED Attending; Name: ; Notified At: ; Arrived At: Physician: ED Resident; Name: ; Notified At: ; Arrived At: Historical: - Allergies: 07:08 No Known Allergies; ll1 - PMHx: 07:08 ADD; ll1 - PSHx: 07:08 None; ll1 - Immunization history:: Adult Immunizations up to date. - Social history:: Smoking status: Reported history of juuling and/or vaping. - Family history:: not pertinent. - Hospitalizations: : No recent hospitalization is reported. Screenin:36 [facility] ED Fall Risk Assessment (Adult) History of falling in the last 3 months, ld1 including since admission No falls in past 3 months (0 pts). Abuse screen: Denies threats or abuse. Denies injuries from another. Nutritional screening: No deficits noted. Tuberculosis screening: No symptoms or risk factors identified. Assessment: 08:36 VAN Scoring: Arm Drift: Patients demonstrates NO arm weakness. Patient is VAN Negative. ld1 General: Appears in no apparent distress. comfortable, Behavior is calm, cooperative, appropriate for age. Pain: Denies pain. Neuro: Level of Consciousness is awake, alert, obeys commands, Oriented to person, place, time, situation. Cardiovascular: Capillary refill < 3 seconds Patient's skin is warm and dry. Respiratory: Airway is patent Respiratory effort is even, unlabored. GI: Abdomen is flat, non-distended. : No signs and/or symptoms were reported regarding the genitourinary system. EENT: No signs and/or symptoms were reported regarding the EENT system. Derm: No signs and/or symptoms reported regarding the dermatologic system. Musculoskeletal: No signs and/or symptoms reported regarding the musculoskeletal system. Vital Signs: 07:08 BP 115 / 83; Pulse 83; Resp 16; Temp 98.5; Pulse Ox 100% on R/A; ll1 08:18 BP 123 / 79 Supine; Pulse 76; Resp 19; Pulse Ox 100% ; ld1 08:20 BP 114 / 75 Sitting; Pulse 74; Resp 19; Pulse Ox 100% on R/A; ld1 08:22 BP 121 / 81 Standing; Pulse 74; Resp 16; Pulse Ox 100% on R/A; ld1 09:02 BP 103 / 84; Pulse 63; Resp 18; Pulse Ox 100% on R/A; ld1 NIH Stroke Scale Scores: 08:36 NIHSS Score: 0 ld1 ED Course: 06:56 Patient arrived in ED. rg4 07:02 Brigido Roberts MD is Attending Physician. rn 07:08 Arm band placed on Patient placed in an exam room, on a stretcher. ll1 07:11 Triage completed. ll1 07:34 Mark Mccallum, TANK is Primary Nurse. jl7 07:39 CT Head Brain wo Cont In Process Unspecified. EDMS 07:50 Chest Single View XRAY In Process Unspecified. EDMS 08:04 Inserted saline lock: 22 gauge in right antecubital area, using aseptic technique. ld1 Blood collected. 08:05 Urinalysis w/ reflexes Sent. ld1 08:05 Troponin High Sensitivity Sent. ld1 08:05 Ptt, Activated Sent. ld1 08:05 Protime (+inr) Sent. ld1 08:05 Test, Urine Sent. ld1 08:05 Hepatic Function Sent. ld1 08:05 Magnesium Sent. ld1 08:05 CBC with Diff Sent. ld1 08:05 Basic Metabolic Panel Sent. ld1 08:05 Flu Sent. ld1 08:05 SARS RAPID Sent. ld1 08:36 Patient has correct armband on for positive identification. Placed in gown. Bed in low ld1 position. Call light in reach. Side rails up X2. monitoring coordinator on. Pulse ox on. NIBP on. Door closed. Noise minimized. 08:36 No provider procedures requiring assistance completed. ld1 10:02 IV discontinued, intact, bleeding controlled, No redness/swelling at site. ld1 Administered Medications: 08:17 Drug: NS 0.9% IV 1000 ml Route: IV; Rate: 1000 ml; Site: right antecubital; ld1 Medication: 08:36 VIS not applicable for this client. ld1 Outcome: 09:51 Discharge ordered by MD. rasmussen 10:02 Discharged to home ambulatory. ld1 10:02 Condition: stable 10:02 Discharge instructions given to patient, Instructed on discharge instructions, follow up and referral plans. Demonstrated understanding of instructions, follow-up care. 10:02 Patient left the ED. ld1 NIH Stroke Scale - NIH Stroke Score Date: 04/22/2023 Time: 08:36 Total Score = 0 10. Dysarthria (speech clarity - read or repeat words) - 0(Normal) 11. Extinction and Inattention (visual/tactile/auditory/spatial/personal) - 0(No abnormality) 1a. Level of Consciousness (LOC) - 0(Alert) 1b. Level of Consciousness (LOC) (Month \T\ Age) - 0(Both) 1c. LOC Commands (Open \T\ Closes Eyes/Pharmaceutical Sales) - 0(Both) 2. Best Gaze (Lateral Gaze Paresis) - 0(Normal) 3. Visual Field Loss - 0(No visual loss) 4. Facial Palsy - 0(Normal) 5a. Left Arm: Motor (10-second hold) - 0(No drift) 5b. Right Arm: Motor (10-second hold) - 0(No drift) 6a. Left Leg: Motor (5-second hold - always test supine) - 0(No drift) 6b. Right Leg: Motor (5-second hold - always test supine) - 0(No drift) 7. Limb Ataxia (finger/nose \T\ heel/frazier - test with eyes open) - 0(Absent) 8. Sensory Loss (pinprick arms/legs/face) - 0(Normal) 9. Best Language: Aphasia (description/naming/reading) - 0(No aphasia) Initials: ld1 Signatures: Dispatcher [employer] EDMS Brigido Roberts MD MD rn Garcia, Rubi rg4 Mark Mccallum RN RN jl7 Etienne Hare RN RN ll1 Demi Frederick RN RN ld1 Corrections: (The following items were deleted from the chart) 07:14 07:08 Chief complaint: Patient states: Feels weak, imbalanced. States eats too ll1 much salty foods. ll1
[2023-04-22 10:20] VITALS: TEMP 98.5; O2SAT 100
[2023-04-22 10:30] VITALS: BP 103/84
--- NOTE | 2023-04-22 16:43 | EKG ---
Test Date: 2023-04-22 Test Time: 08:10:42 [employer] Senior Sergeant: Geri PENN MEASUREMENT RESULTS: Intervals: Rate: 76 IN: 128 QRSD: 86 QT: 380 QTc: 427 [place]: P: 67 IN: 128 QRS: 109 T: 56 INTERPRETIVE STATEMENTS: Normal sinus rhythm Rightward axis Borderline ECG Compared to ECG 04/16/2022 20:02:34 No significant changes Electronically Signed On 04-22-23 16:41:54 CDT by Herb Bahena
== END 2023-04-22 10:02 | disposition home or self-care (01) ==
LOC: ER 06:55
DX: R42 Dizziness and giddiness (principal); R53.1 Weakness; F17.290 Nicotine dependence, other tobacco product, uncomplicated; Z20.822 Contact with and (suspected) exposure to COVID-19
CPT/HCPCS: 93005; 85025; 80048; 36415; 83735; 81025; 85610; 80076; 85730; 81003; 84484; 87804 ×2; 70450; 71045; 99285; 87811; J7030

== ENCOUNTER 2023-04-29 18:47 | Emergency (ER) | payer BC ==
--- NOTE | 2023-04-29 20:27 | EDPHYS ---
Physician Documentation [facility] Name: Elena Prescott Age: 27 yrs Sex: Female : 1995 Arrival Date: 04/29/2023 Time: 18:47 Bed DIS3 Private MD: BRADLEY Physician Jovany Clemente HPI: 04/29 20:51 This 27 yrs old Female presents to ER via Ambulatory with complaints of Finger Injury. snw 20:51 The patient or guardian reports a contusion, decreased range of motion, injury, pain. snw The complaints affect the DIP of left middle finger, PIP of left middle finger and MCP of left middle finger. 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 Onset: The symptoms/episode began/occurred suddenly, this morning. Associated signs and symptoms: The patient has no apparent associated signs or symptoms. Severity of symptoms: At their worst the symptoms were moderate. The patient has not experienced similar symptoms in the past. It is unknown whether or not the patient has recently seen a physician. Historical: - Allergies: 18:58 No Known Allergies; ap3 - Home Meds: 18:58 None [Active]; ap3 - PMHx: 18:58 ADD; Seizure; ap3 - Immunization history:: Client reports having NOT received the Covid vaccine. - Social history:: Smoking status: Reported history of juuling and/or vaping. ROS: 20:51 Constitutional: Negative for fever, chills, and weight loss, Eyes: Negative for injury, snw pain, redness, and discharge, ENT: Negative for injury, pain, and discharge, Neck: Negative for injury, pain, and swelling, Cardiovascular: Negative for chest pain, palpitations, and edema, Respiratory: Negative for shortness of breath, cough, wheezing, and pleuritic chest pain, Abdomen/GI: Negative for abdominal pain, nausea, vomiting, diarrhea, and constipation, Back: Negative for injury and pain, : Negative for injury, bleeding, discharge, and swelling, Skin: Negative for injury, rash, and discoloration, Neuro: Negative for headache, weakness, numbness, tingling, and seizure, Psych: Negative for depression, anxiety, suicide ideation, homicidal ideation, and hallucinations. 20:51 MS/extremity: Positive for injury or acute deformity, decreased range of motion, ecchymosis, pain, swelling, tenderness, of the left middle finger. Exam: 20:49 Constitutional: This is a well developed, well nourished patient who is awake, alert, snw and in no acute distress. Head/Face: Normocephalic, atraumatic. Eyes: Pupils equal round and reactive to light, extra-ocular motions intact. Lids and lashes normal. Conjunctiva and sclera are non-icteric and not injected. Cornea within normal limits. Periorbital areas with no swelling, redness, or edema. ENT: Nares patent. No nasal discharge, no septal abnormalities noted. Tympanic membranes are normal and external auditory canals are clear. Oropharynx with no redness, swelling, or masses, exudates, or evidence of obstruction, uvula midline. Mucous membranes moist. Neck: Trachea midline, no thyromegaly or masses palpated, and no cervical lymphadenopathy. Supple, full range of motion without nuchal rigidity, or vertebral point tenderness. No Meningismus. Chest/axilla: Normal chest wall appearance and motion. Nontender with no deformity. No lesions are appreciated. Cardiovascular: Regular rate and rhythm with a normal S1 and S2. No gallops, murmurs, or rubs. Normal PMI, no JVD. No pulse deficits. Respiratory: Lungs have equal breath sounds bilaterally, clear to auscultation and percussion. No rales, rhonchi or wheezes noted. No increased work of breathing, no retractions or nasal flaring. Abdomen/GI: Soft, non-tender, with normal bowel sounds. No distension or tympany. No guarding or rebound. No evidence of tenderness throughout. Back: No spinal tenderness. No costovertebral tenderness. Full range of motion. Skin: Warm, dry with normal turgor. Normal color with no rashes, no lesions, and no evidence of cellulitis. Neuro: Awake and alert, GCS 15, oriented to person, place, time, and situation. Cranial nerves II-XII grossly intact. Motor strength 5/5 in all extremities. Sensory grossly intact. Cerebellar exam normal. Normal gait. Psych: Awake, alert, with orientation to person, place and time. Behavior, mood, and affect are within normal limits. 20:49 Musculoskeletal/extremity: Extremities: grossly normal except: noted in the left middle finger: decreased ROM, ecchymosis, swelling, tenderness. Vital Signs: 18:56 BP 115 / 79; Pulse 101; Resp 18; Temp 97.9; Pulse Ox 100% ; Weight 45.36 kg; Height 5 ap3 ft. 1 in. ; Pain 7/10; 18:56 Body Mass Index 18.89 (45.36 kg, 154.94 cm) ap3 18:56 Pain Scale: Adult ap3 MDM: 20:01 Patient medically screened. janes 20:17 Patient medically screened. janes 20:50 Differential diagnosis: finger contusion, laceration, tendon injury, finger fracture. snw Data reviewed: vital signs, nurses notes, radiologic studies. I considered the following discharge prescriptions or medication management in the emergency department Medications were administered in the Emergency Department. See MAR. Independent interpretation of the following test(s) in the Emergency Department X-Ray: My interpretation is no noted fracture of left hand/fingers. Counseling: I had a detailed discussion with the patient and/or guardian regarding the historical points, exam findings, and any diagnostic results supporting the discharge/admit diagnosis, radiology results, the need for outpatient follow up, for definitive care, to return to the emergency department if symptoms worsen or persist or if there are any questions or concerns that arise at home. Response to treatment: the patient's symptoms have mildly improved after treatment. Special discussion: Based on the history and exam findings, there is no indication for further emergent testing or inpatient evaluation. I discussed with the patient/guardian the need to see the orthopedic surgeon for further evaluation of the symptoms. I discussed with the patient/guardian the need to see the primary care provider for further evaluation of the symptoms. 04/29 19:21 Order name: Hand Left 3 View XRAY; Complete Time: 21:35 snw 04/29 20:25 Order name: Splint - Finger; Complete Time: 21:45 snw 04/29 20:25 Order name: Ice pack; Complete Time: 21:45 snw Administered Medications: 20:26 CANCELLED (Inappropriate at this time): traMADol PO 50 mg PO once snw 20:41 Drug: Ibuprofen PO 400 mg Route: PO; as6 21:45 Follow up: Response: No adverse reaction as6 20:41 Drug: HYDROcodone-acetaminophen PO 5 mg-325 mg 1 tabs Route: PO; as6 21:45 Follow up: Response: No adverse reaction as6 Disposition Summary: 04/29/23 20:27 Discharge Ordered Location: Home snw Condition: Stable snw Diagnosis - Crushing injury of left middle finger snw Followup: snw - With: Emergency Department - When: As needed - Reason: Worsening of condition Followup: snw - With: Private Physician - When: 2 - 3 days - Reason: Recheck today's complaints, Continuance of care, Re-evaluation by your physician Discharge Instructions: - Discharge Summary Sheet snw - Contusion snw - Cast or Splint Care, Adult snw - RICE Therapy for Routine Care of Injuries snw - Finger Sprain, Adult snw Forms: - Work release form snw - Medication Reconciliation Form snw - Thank You Letter snw - Antibiotic Education snw - Prescription Opioid Use snw - Patient Portal Instructions snw - Leadership Thank You Letter snw Prescriptions: - Mobic 7.5 mg Oral Tablet - take 1 tablet by ORAL route once daily take with food; 20 tablet; Refills: 0, snw Product Selection Permitted Signatures: Dispatcher [employer] EDJovany Quiroz MD MD cha Waters, Shelly, WOOD PILE DRIVER OPERATOR-C WOOD PILE DRIVER OPERATOR-Csnw Daria Montes RN RN ap3 Elías Cobian, TANK RN as6 Corrections: (The following items were deleted from the chart) 20:26 20:25 traMADol PO 50 mg PO once ordered. snw snw
--- NOTE | 2023-04-29 20:27 | ER ---
Nurse's Notes [facility] Name: Elena Prescott Age: 27 yrs Sex: Female : 1995 Arrival Date: 04/29/2023 Time: 18:47 Bed DIS3 Private MD: Diagnosis: Crushing injury of left middle finger Presentation: 04/29 18:56 Chief complaint: Patient states: she was working when a piece of scaffolding fell on ap3 her left middle finger. patient states her pain is currently a 7/10 on the pain scale. Coronavirus screen: At this time, the client does not indicate any symptoms associated with coronavirus-19. Ebola Screen: No symptoms or risks identified at this time. Initial Sepsis Screen: Does the patient meet any 2 criteria? No. Patient's initial sepsis screen is negative. Does the patient have a suspected source of infection? No. Patient's initial sepsis screen is negative. Risk Assessment: Do you want to hurt yourself or someone else? Patient reports no desire to harm self or others. Onset of symptoms was April 29, 2023. 18:56 Method Of Arrival: Ambulatory ap3 18:56 Acuity: MILDRED 4 ap3 Triage Assessment: 18:58 General: Appears in no apparent distress. Behavior is calm, cooperative, appropriate ap3 for age. Pain: Complains of pain in left middle finger Pain currently is 7 out of 10 on a pain scale. Pain began suddenly. Neuro: Level of Consciousness is awake, alert, obeys commands, Oriented to person, place, time, situation. Cardiovascular: Patient's skin is warm and dry. Respiratory: Airway is patent Respiratory effort is even, unlabored, Respiratory pattern is regular, symmetrical. Musculoskeletal: Reports pain in left middle finger. Historical: - Allergies: 18:58 No Known Allergies; ap3 - Home Meds: 18:58 None [Active]; ap3 - PMHx: 18:58 ADD; Seizure; ap3 - Immunization history:: Client reports having NOT received the Covid vaccine. - Social history:: Smoking status: Reported history of juuling and/or vaping. Screenin:59 [facility] ED Fall Risk Assessment (Adult) History of falling in the last 3 months, ap3 including since admission No falls in past 3 months (0 pts). Abuse screen: Denies threats or abuse. Nutritional screening: No deficits noted. Tuberculosis screening: No symptoms or risk factors identified. Vital Signs: 18:56 BP 115 / 79; Pulse 101; Resp 18; Temp 97.9; Pulse Ox 100% ; Weight 45.36 kg; Height 5 ap3 ft. 1 in. ; Pain 7/10; 18:56 Body Mass Index 18.89 (45.36 kg, 154.94 cm) ap3 18:56 Pain Scale: Adult ap3 ED Course: 18:48 Patient arrived in ED. rg4 18:58 Triage completed. ap3 18:59 Arm band placed on right wrist. ap3 19:53 Sulema Benoit FNP-C is [facility]. snw 19:53 Jovany Clemente MD is Attending Physician. snw 20:29 Hand Left 3 View XRAY In Process Unspecified. EDMS 21:24 Orthoglass splint: finger splint on the left finger. oe 21:45 Placed in gown. Bed in low position. Provided Education on: follow up. as6 21:46 No provider procedures requiring assistance completed. Patient did not have IV access as6 during this emergency room visit. Administered Medications: 20:26 CANCELLED (Inappropriate at this time): traMADol PO 50 mg PO once snw 20:41 Drug: Ibuprofen PO 400 mg Route: PO; as6 21:45 Follow up: Response: No adverse reaction as6 20:41 Drug: HYDROcodone-acetaminophen PO 5 mg-325 mg 1 tabs Route: PO; as6 21:45 Follow up: Response: No adverse reaction as6 Medication: 21:45 VIS not applicable for this client. as6 Outcome: 20:27 Discharge ordered by . snw 21:46 Discharged to home ambulatory. as6 21:46 Condition: stable 21:46 Discharge instructions given to patient, Instructed on discharge instructions, follow as6 up and referral plans. medication usage, Demonstrated understanding of instructions, follow-up care, medications. 21:46 Patient left the ED. as6 Signatures: Dispatcher [employer] EDMS Sulema Benoit FNP-C FNP-Mai Pascal rg4 Calvin Dos Santos Amanda RN RN ap3 Elías Cobian RN RN as6
[2023-04-29] MEDS ORDERED: IBUPROFEN 400 MG TAB ONE (20:51)
[2023-04-29] MEDS ORDERED: HYDROCODONE/APAP 5/325 MG TAB ONE (20:51)
--- NOTE | 2023-04-29 21:31 | RAD REPORT ---
EXAM DESCRIPTION: JOSE SHEPARD - 04/29/2023 8:28 pm CLINICAL HISTORY: SMASH INJURY COMPARISON: No comparisons TECHNIQUE: Left hand, 3 views. FINDINGS: No fracture is identified. There is no dislocation or periosteal reaction noted. Joint alignment is maintained. No foreign body or other soft tissue abnormality. IMPRESSION: Negative left hand examination.
[2023-04-29 22:10] VITALS: BP 115/79; TEMP 97.9; O2SAT 100
== END 2023-04-29 21:46 | disposition home or self-care (01) ==
LOC: ER 18:47
DX: S67.193A Crushing injury of left middle finger, initial encounter (principal)
CPT/HCPCS: 99283

== ENCOUNTER → 2023-08-13 | Emergency (ER) | payer BC ==
[~2023-08-13] MED LIST: AMOX/K CLAV 875 MG TAB ONE; HYDROCODONE/APAP 7.5/325 MG TAB ONE
--- NOTE | 2023-08-13 22:01 | EDPHYS ---
Physician Documentation [facility] Name: Elena Prescott Age: 27 yrs Sex: Female : 1995 Arrival Date: 08/13/2023 Time: 21:04 Bed DX4 Private MD: ED Physician Jovany Clemente HPI: 08/13 21:56 This 27 yrs old Female presents to ER via Ambulatory with complaints of Jaw janes Pain. 21:56 The patient presents with pain, swelling. The problem is located in the left buccal janes mucosa. Onset: The symptoms/episode began/occurred 2 day(s) ago. Duration: The symptoms are continuous, and are steadily getting worse. Modifying factors: The symptoms are alleviated by nothing, the symptoms are aggravated by chewing. Associated signs and symptoms: The patient has no apparent associated signs or symptoms. The patient has experienced similar episodes in the past, several times. Historical: - Allergies: 21:17 No Known Allergies; cm10 - PMHx: 21:17 ADD; Seizure; cm10 - Immunization history:: Adult Immunizations unknown. - Social history:: Smoking status: Reported history of juuling and/or vaping. - Family history:: not pertinent. ROS: 21:56 Constitutional: Negative for fever, chills, and weight loss, Eyes: Negative for injury, janes pain, redness, and discharge, Neck: Negative for injury, pain, and swelling, Cardiovascular: Negative for chest pain, palpitations, and edema, Respiratory: Negative for shortness of breath, cough, wheezing, and pleuritic chest pain, Abdomen/GI: Negative for abdominal pain, nausea, vomiting, diarrhea, and constipation, Back: Negative for injury and pain, : Negative for injury, bleeding, discharge, and swelling, MS/Extremity: Negative for injury and deformity, Skin: Negative for injury, rash, and discoloration, Neuro: Negative for headache, weakness, numbness, tingling, and seizure, Psych: Negative for depression, anxiety, suicide ideation, homicidal ideation, and hallucinations, Allergy/Immunology: Negative for hives, rash, and allergies, Endocrine: Negative for neck swelling, polydipsia, polyuria, polyphagia, and marked weight changes, Hematologic/Lymphatic: Negative for swollen nodes, abnormal bleeding, and unusual bruising, 21:56 ENT: Positive for dental pain, Exam: 21:56 Constitutional: This is a well developed, well nourished patient who is awake, alert, janes and in no acute distress. Head/Face: Normocephalic, atraumatic. Eyes: Pupils equal round and reactive to light, extra-ocular motions intact. Lids and lashes normal. Conjunctiva and sclera are non-icteric and not injected. Cornea within normal limits. Periorbital areas with no swelling, redness, or edema. Neck: Trachea midline, no thyromegaly or masses palpated, and no cervical lymphadenopathy. Supple, full range of motion without nuchal rigidity, or vertebral point tenderness. No Meningismus. Chest/axilla: Normal chest wall appearance and motion. Nontender with no deformity. No lesions are appreciated. Cardiovascular: Regular rate and rhythm with a normal S1 and S2. No gallops, murmurs, or rubs. Normal PMI, no JVD. No pulse deficits. Respiratory: Lungs have equal breath sounds bilaterally, clear to auscultation and percussion. No rales, rhonchi or wheezes noted. No increased work of breathing, no retractions or nasal flaring. Abdomen/GI: Soft, non-tender, with normal bowel sounds. No distension or tympany. No guarding or rebound. No evidence of tenderness throughout. Back: No spinal tenderness. No costovertebral tenderness. Full range of motion. Skin: Warm, dry with normal turgor. Normal color with no rashes, no lesions, and no evidence of cellulitis. MS/ Extremity: Pulses equal, no cyanosis. Neurovascular intact. Full, normal range of motion. Neuro: Awake and alert, GCS 15, oriented to person, place, time, and situation. Cranial nerves II-XII grossly intact. Motor strength 5/5 in all extremities. Sensory grossly intact. Cerebellar exam normal. Normal gait. Psych: Awake, alert, with orientation to person, place and time. Behavior, mood, and affect are within normal limits. 21:56 ENT: Mouth: Lips: normal, Oral mucosa: normal, pink and intact, Gums: noted to have cellulitis, reddened, on the left buccal mucosa, Posterior pharynx: no acute changes, Airway: normal, no evidence of obstruction, Vital Signs: 21:16 BP 120 / 90; Pulse 83; Resp 18; Temp 98.4; Pulse Ox 98% on R/A; Weight 45.81 kg; Height cm10 5 ft. 1 in. ; Pain 10/10; 21:16 Body Mass Index 19.08 (45.81 kg, 154.94 cm) cm10 21:16 Pain Scale: Adult cm10 MDM: 21:22 Patient medically screened. [facility] 21:58 Differential diagnosis: dental caries, gingivitis, dental abscess, pericoronitis. Data [facility] reviewed: vital signs, nurses notes. Consideration of Admission/Observation Escalation of care including admission/observation considered. I considered the following discharge prescriptions or medication management in the emergency department Medications were administered in the Emergency Department. See MAR. Test considered but Not performed: Labs: NO LABS. Care significantly affected by the following chronic conditions: ADD, ADHD, SEIZURES. Administered Medications: 22:03 Drug: Amoxicillin-Clavulanate PO 875 mg PO once Route: PO; jb4 22:03 Drug: Hydrocodone-Acetaminophen PO (7.5 mg-325 mg) 1 tabs PO once Route: PO; jb4 Disposition Summary: 08/13/23 22:00 Discharge Ordered Notes: Location: Home janes Problem: new janes Symptoms: have improved janes Condition: Stable janes Diagnosis - Dental caries, unspecified - DENTAL PAIN janes Followup: janes - With: Private Physician - When: 2 - 3 days - Reason: Recheck today's complaints, Continuance of care, Re-evaluation by your physician Followup: janes - With: Gustavo Green DDS - When: 2 - 3 days - Reason: Recheck today's complaints, Re-evaluation by your physician Discharge Instructions: - Discharge Summary Sheet [facility] - Dental Pain janes - Dental Pain, [id number] janes - Dental Caries, Adult, [id number] [facility] Forms: - Medication Reconciliation Form [facility] - Thank You Letter [facility] - Antibiotic Education [facility] - Prescription Opioid Use [facility] - Patient Portal Instructions [facility] - Leadership Thank You Letter [facility] Prescriptions: - acetaminophen-codeine 300-30 mg Oral tablet - take 1 tablet ORAL route every 4-6 hours; 20 tablet; Refills: 0, Product janes Selection Permitted - Amoxicillin 500 mg Oral Capsule - take 1 capsule ORAL route every 8 hours for 10 days; 30 tablet; Refills: 0, janes Product Selection Permitted - Motrin IB 200 mg Oral tablet - take 3 tablet ORAL route every 6 hours As needed as needed with food; 30 janes tablet; Refills: 0, Product Selection Permitted Signatures: Jovany Clemente MD MD cha Bryson, James, RN RN jb4 Evelyn Ly RN RN cm10
--- NOTE | 2023-08-13 22:01 | ER ---
Nurse's Notes [facility] Name: Elena Prescott Age: 27 yrs Sex: Female : 1995 Arrival Date: 08/13/2023 Time: 21:04 Bed DX4 Private MD: Diagnosis: Dental caries, unspecified-DENTAL PAIN Presentation: 08/13 21:16 Chief complaint: Patient states: left sided jaw pain onset today. Pt states, "I think cm10 that it is my wisdom tooth.". Coronavirus screen: Vaccine status: Patient reports being unvaccinated. Client denies travel out of the [place] in the last 14 days. Ebola Screen: Patient denies travel to an Ebola-affected area in the 21 days before illness onset. No symptoms or risks identified at this time. Initial Sepsis Screen: Does the patient meet any 2 criteria? No. Patient's initial sepsis screen is negative. Does the patient have a suspected source of infection? No. Patient's initial sepsis screen is negative. Risk Assessment: Do you want to hurt yourself or someone else? Patient reports no desire to harm self or others. Onset of symptoms was August 13, 2023. 21:16 Method Of Arrival: Ambulatory cm10 21:16 Acuity: MILDRED 4 cm10 Historical: - Allergies: 21:17 No Known Allergies; cm10 - PMHx: 21:17 ADD; Seizure; cm10 - Immunization history:: Adult Immunizations unknown. - Social history:: Smoking status: Reported history of juuling and/or vaping. - Family history:: not pertinent. Screenin:07 [facility] ED Fall Risk Assessment (Adult) History of falling in the last 3 months, jb4 including since admission No falls in past 3 months (0 pts) Confusion or Disorientation No (0 pts). Abuse screen: Denies threats or abuse. Nutritional screening: No deficits noted. Tuberculosis screening: No symptoms or risk factors identified. Assessment: 22:07 General: Appears in no apparent distress. uncomfortable, Behavior is calm, cooperative, jb4 appropriate for age. Pain: Complains of pain in Left lower wisdom tooth Pain radiates to headache Pain currently is 8 out of 10 on a pain scale. Neuro: Level of Consciousness is awake, alert, obeys commands, Oriented to person, place, time, situation. Cardiovascular: Patient's skin is warm and dry. Respiratory: Airway is patent Respiratory effort is even, unlabored, Respiratory pattern is regular, symmetrical. GI: No signs and/or symptoms were reported involving the gastrointestinal system. : No signs and/or symptoms were reported regarding the genitourinary system. EENT: No signs and/or symptoms were reported regarding the EENT system. Derm: Skin is intact, Skin is pink, warm \\T\\ dry. Musculoskeletal: Circulation, motion, and sensation intact. Range of motion: intact in all extremities. Vital Signs: 21:16 BP 120 / 90; Pulse 83; Resp 18; Temp 98.4; Pulse Ox 98% on R/A; Weight 45.81 kg; Height cm10 5 ft. 1 in. ; Pain 10/10; 21:16 Body Mass Index 19.08 (45.81 kg, 154.94 cm) cm10 21:16 Pain Scale: Adult cm10 ED Course: 21:06 Patient arrived in ED. mr 21:17 Triage completed. cm10 21:18 Arm band placed on Patient placed in waiting room. cm10 21:22 Jovany Clemente MD is Attending Physician. [facility] 22:00 Gustavo Green DDS is Referral Physician. [facility] 22:07 Patient has correct armband on for positive identification. Bed in low position. Call jb4 light in reach. Side rails up X 1. 22:07 No provider procedures requiring assistance completed. Patient did not have IV access jb4 during this emergency room visit. Administered Medications: 22:03 Drug: Amoxicillin-Clavulanate PO 875 mg PO once Route: PO; jb4 22:03 Drug: Hydrocodone-Acetaminophen PO (7.5 mg-325 mg) 1 tabs PO once Route: PO; jb4 Medication: 22:07 VIS not applicable for this client. jb4 Outcome: 22:00 Discharge ordered by . [facility] 22:07 Discharged to home ambulatory, jb4 22:07 Condition: stable 22:07 Discharge instructions given to patient, Instructed on discharge instructions, follow up and referral plans. medication usage, Demonstrated understanding of instructions, follow-up care, medications, Prescriptions given X 2, 22:09 Patient left the ED. jb4 Signatures: Jovany Clemente MD MD cha Rivera, Mary, Reg Reg Irwin Mcdonald, RN RN jb4 Malachi, Evelyn, RN RN cm10
[2023-08-14 01:24] VITALS: BP 120/90; TEMP 98.4; O2SAT 98
== END ==
LOC: ER 21:04
DX: K02.9 Dental caries, unspecified (principal)
CPT/HCPCS: 99283

== ENCOUNTER 2024-01-17 22:10 | Emergency (ER) | payer BC ==
--- OUTSIDE RECORDS SUMMARY | 2024-01-17 22:13 | XMS REPORT | Continuity of Care Document ---
Author Name Unknown Address [address] [facility] [address] [place] [address] [facility] thconnect Address [address] [facility] [address] [facility] 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 Name Role Phone SHANI HOLDER Primary Care Physician Unavailab SHANI Bui Attending Clinician Unavailable ROGELIO FELIX Attending Clinician Unavailable Shani Booker Attending Clinician [phone] JUAN CARLOS CABRERA Attending Clinician Unavailable Bassam SALINAS Attending Clinician Unavailable Bassam Patton Attending Clinician [phone] Payers Payer Name Policy Type Policy Number Effective Date Expirati on Date Source [facility] [id number] 2023 00:00:00 Problems Condition Name Condition Details Condition Category Status Onset Date Resolution Date Last Treatment Date Treating Clinician Comments Source Chronic migraine w/o aura w/o status migrainosu s, not intractabl e Chronic migraine w/o aura w/o status migrainosu s, not intractabl e Disease Active 01-07 00:00: 00 [facility] Allergies, Adverse Reactions, Alerts Allergy Name Allergy Type Status Severity Reaction(s) Onset Date Inactive Date Treating Clinician Comments Source NO KNOWN ALLERGIE S Drug Class Active [facility] Social History Social Habit Start Date Stop Date Quantity Comments Source Sexual orientation U [facility] History of Social function 2024-01-08 00:00:00 2024-01-08 00:00:00 [facility] Sex assigned at 1995 00:00:00 1995 00:00:00 [facility] Smoking Status Start Date Stop Date Source Tobacco smoking consumption unknown [facility] Medications Ordered Medication Name Filled Medication Name Start Date Stop Date Current Medication? Ordering Clinician Indication Dosage Frequency Signature (SIG) Comments Components Source rizatriptan (MAXALT) 10 mg tablet 01-07 00:00: 00 Yes [id number] 10mg Take 1 tablet by mouth as needed for Migraine. May repeat in 2 hours if needed [facility] topiramate (TOPAMAX) 50 mg tablet 01-07 00:00: 00 Yes [id number] 50mg Take 1 tablet by mouth in the morning. [facility] NaCl 0.9% (NS) bolus infusion 1,000 mL 01-01 01:15: 00 01-01 01:15 :00 No 1000mL at 999 mL/hr, 1,000 mL, IV Infusion, ONCE, 1 dose, On Bekah 01/01/24 at 2014, STAT [facility] ketorolac (TORADOL) injection 15 mg 01-01 01:15: 00 01-01 01:01 :00 No 15mg 15 mg, Slow IV Push, ONCE, 1 dose, On Bekah 01/01/24 at 2014, [facility] diphenhydrA MINE (BENADRYL) injection 25 mg 01-01 01:15: 00 01-01 01:01 :00 No 25mg 25 mg, Slow IV Push, ONCE, 1 dose, On Fri01/01/24 at 2014, STAT [facility] metoclopram aman HCl (REGLAN) injection 10 mg 01-01 01:15: 00 01-01 01:01 :00 No 10mg 10 mg, Slow IV Push, ONCE, 1 dose, On Bekah 01/01/24 at 2014, [facility] testosteron e cypionate 200 mg/mL injection 3 00:00: 00 Yes INJECT 0.4ML ONCE A WEEK [facility] ECLIPSE SYRINGE 3 mL 25 gauge x 1" Syrg 10-13 00:00: 00 Yes INJECT DIRECTED FOR TESTDOC MARTINEZ. [facility] Immunizations Ordered Immunization Name Filled Immunization Name Date Status Comments Source TDAP Unknown Completed [facility] TDAP Unknown Completed [facility] TDAP Unknown Completed [facility] Vital Signs Vital Name Observation Time Observation Value Comments S ource Systolic blood pressure 2024-01-08 18:10:00 109 mm[Hg] [facility] Diastolic blood pressure 2024-01-08 18:10:00 76 mm[Hg] [facility] Heart rate 2024-01-08 18:10:00 98 /min [facility] Body temperature 2024-01-08 18:10:00 37 Cecilia [facility] Respiratory rate 2024-01-08 18:10:00 18 /min [facility] Body height 2024-01-08 18:10:00 154.9 cm [facility] Body weight 2024-01-08 18:10:00 50.122 kg [facility] BMI 2024-01-08 18:10:00 20.88 kg/m2 [facility] Oxygen saturation in Arterial blood by Pulse oximetry 2024-01-08 18:10:00 98 /min [facility] Systolic blood pressure 2024-01-02 00:00:00 109 mm[Hg] [facility] Diastolic blood pressure 2024-01-02 00:00:00 75 mm[Hg] [facility] Heart rate 2024-01-02 00:00:00 77 /min Unive [facility] Respiratory rate 2024-01-02 00:00:00 16 /min [facility] Oxygen saturation in Arterial blood by Pulse oximetry 2024-01-02 00:00:00 99 /min [facility] Body temperature 2024-01-01 22:26:00 37.11 Cecilia [facility] Body height 2024-01-01 22:26:00 154.9 cm [facility] Body weight 2024-01-01 22:26:00 50.621 kg [facility] BMI 2024-01-01 22:26:00 21.09 kg/m2 [facility] Procedures Procedure Date / Time Performed Performing Clinician Source TDAP VACCINE, >11 YRS, IM 2024-01-08 18:45:23 Shani Holder [facility] COMP. METABOLIC PANEL (17745) 2024-01-01 22:55:00 Bassam Salinas [facility] CBC WITH DIFF 2024-01-01 22:55:00 Bassam Salinas [facility] PROTHROMBIN TIME / INR 2024-01-01 22:55:00 Bassam Salinas [facility] ACTIVATED PARTIAL THRMPLAS DOMENICA 2024-01-01 22:55:00 Bassam Salinas [facility] Encounters Start Date/Time End Date/Time Encounter Type Admission Type Attending Clinicians Care Facility Care Department Encounter ID Source 2024-02-02 11:00:00 2024-02-02 11:00:00 Outpatient ROGELIO FELIX [id number] [facility] 2024-01-08 00:00:00 2024-01-08 14:11:35 [facility] [id number] 4.2.7.2.686 [id number] [facility] 2024-01-08 13:00:00 2024-01-08 13:30:00 [facility] [id number] 4.2.7.2.686 [id number] [facility] 2024-01-08 13:00:00 2024-01-08 13:00:00 Outpatient R SHANI HOLDER [facility] [id number] [facility] 2024-01-02 15:30:00 2024-01-02 15:30:00 Outpatient JUAN CARLOS CABRERA RADHA [id number] [facility] 2024-01-02 14:00:00 2024-01-02 14:00:00 Outpatient ROGELIO FELIX RADHA [id number] [facility] 2024-01-01 17:28:00 2024-01-01 20:23:00 Emergency X BRAD, Bassam [facility] ERT [id number] [facility] 2024-01-01 17:28:00 2024-01-01 20:23:00 Emergency BradBassam Johnna [facility] [id number] [id number] [id number] [facility] Results Test Description Test Time Test Comments Results Result Co mments Source [facility] with [id number] 23:25:23* Test Item Value Reference Range Interpretation Comme nts WBC (test code = 6690-2) 8.27 4.30-11.10 RBC (test code = 789-8) 4.86 3.93-5.25 HGB (test code = 718-7) 14.4 g/dL 11.6-15.0 HCT (test code = 4544-3) 43.5 % 35.7-45.2 MCV (test code = 787-2) 89.5 fL 80.6-95.5 MCH (test code = 785-6) 29.6 pg 25.9-32.8 MCHC (test code = 786-4) 33.1 g/dL 31.6-35.1 RDW-SD (test code = 65388-9) 43.1 fL 39.0-49.9 RDW-CV (test code = 788-0) 13.2 % 12.0-15.5 PLT (test code = 777-3) 355 166-358 MPV (test code = 51406-9) 10.4 fL 9.5-12.9 NRBC/100 WBC (test code = 6372174894) 0.0 0.0-10.0 NRBC x10^3 (test code = 0336885723) See_Comment [Automated messa ge] The system which generated this result transmitted reference range: 10*3/?L. The reference range was not used to interpret this result as normal/abnormal. GRAN MAT (NEUT) % (test code = 770-8) 48.7 % IMM GRAN % (test code = 0717764792) 0.20 % LYMPH % (test code = 736-9) 40.3 % MONO % (test code = 5905-5) 6.8 % EOS % (test code = 713-8) 3.3 % BASO % (test code = 706-2) 0.7 % GRAN MAT x10^3(ANC) (test code = 3931710205) 4.03 10*3/uL 1.88-7.09 IMM GRAN x10^3 (test code = 2265622792) 0.00-0.06 LYMPH x10^3 (test code = 731-0) 3.33 10*3/uL 1.32-3.29 H MONO x10^3 (test code = 742-7) 0.56 10*3/uL 0.33-0.92 EOS x10^3 (test code = 711-2) 0.27 10*3/uL 0.03-0.39 BASO x10^3 (test code = 704-7) 0.06 10*3/uL 0.01-0.07 Lab Interpretation (test code = 98916-2) [facility] [id number] 23:25:23* Test Item Value Reference Range Interpretation Comme [facility] PROTIME PATIENT (test code = 5964-2) 13.0 10.1-12.6 H INR (test code = 6301-6) 1.1 Normal INR <1.1; Warfarin Therapeutic range 2.0 to 3.0 or 2.5 to 3.5, depending upon the indications. Lab Interpretation (test code = 43766-7) Abnormal [facility] Partial Thrmplas [id number] 23:25:23* Test Item Value Reference Range Interpretation Comme [facility] APTT Patient (test code = 3173-2) 31 26-36 POLY (test code = POLY) The [facility] patient population mean normal value for aPTT is 30 seconds. Lab Interpretation (test code = 72318-5) Normal [facility] Notes Date/Time Note Provider Source 2024-01-01 20:22:34 1494-60-66L84:22:34F ormatting of this note might be different from the original.Pt given printed and verbal discharge instructions regarding blood in stool, acute non intractable headachePt verbalized understanding of instructions, pt awake alert oriented, resp reg unlabored, skin w/d, color appropriate for race, moves all ext well,pt encouraged to follow up with pcpAdvised to seek medical attention for new/prolonged/worsening of symptoms,No adverse reaction to meds given in ER noted upon dischargePIV d'cd, dressing to site, catheter in tact.Awake, alert oriented, resp reg unlabored, skin w/d, pt leaving amb with steady gait, in no apparent distress 97165-5Ncbmklepo department SiqvPJ8194-97-73W07:23:31Emergen y department NoteTXT1.2.840.306434.1.13.104.2. 7.2.914960|[id number] for patient fjfo44074-1RqjcNLOHILGCQEIMuxjiwq ed C-CDA narrative [id number] E Tyler RN[address] WcxfZepmahjdrVlhdnjmmdLANY8426537 992GINNGPSGQUKZSTVGQWSRTV3726-71- 16T20:23:311.2.840.524948.1.72.3. 15|1.2.840.788276.1.13.104.2.7.2. [id number] Miracle Thorpe RN [facility] 2024-01-01 19:00:34 8158-86-22V39:00:34F ormatting of this note might be different from the original.Nurse to nurse patient care report given to Miracle FU 30860-5Yyxadiunq department SvctWA6676-34-65F49:01:48[facility] department NoteTXT1.2.840.647884.1.13.104.2. 7.2.956220|[id number] for patient klmj97778-4LaqjGXQDAMUKPWOScxnfrq ed C-CDA narrative [id number] E Linkes RN[address]TXTX[address] 178KCGXJCSGCMFYBOKRHSLKMG8772-44- 16T19:01:481.2.840.093241.1.72.3. 15|1.2.840.517090.1.13.104.2.7.2. [id number] Milka Phelps RN [facility] 2024-01-01 17:28:14 5235-09-58R38:28:14F ormatting of this note might be different from the original.Pt given urine cup and placed back in lobby. 48970-7Glfqvkbmd department UmayXG4628-06-07U86:28:26Emenorth [facility] department NoteTXT1.2.840.330095.1.13.104.2. 7.2.273193|[id number] for patient ihkh67081-1ZapmMGVJNZPMFYVBpessxm ed C-CDA narrative text[address]TXTX[address] 505VKOKEGIICFDNMGYKTJKUTE9113-79- 16T17:28:261.2.840.371744.1.72.3. 15|1.2.840.932861.1.13.104.2.7.2. [id number] [facility] 2024-01-01 17:24:08 2881-81-19W52:24:08F ormatting of this note might be different from the original.Pt arrived ambulatory without assist. Pt has her with her, Okay to discuss medical care in front of . Pt states "I have blood in my stool. I have been having blood in my stool for 2 weeks."Blood is bright red.Denies dark tarry stools. 35309-8Zkurokxnk department Triage exqjQX4937-16-17E50:25:54[facility] department Triage noteTXT1.2.840.154334.1.13.104.2. 7.2.338950|[id number] for patient jhls48141-4Jdbqhycri department NoteLNNARRATIVEFormatted C-CDA narrative text[address] HuneMakmjesjeAhmjhibuyKKSL7813834 816ASUUWQREEVLCDMSWBTFBOV9092-99- 16T17:25:541.2.840.729956.1.72.3. 15|1.2.840.066572.1.13.104.2.7.2. [id number] [facility]
--- NOTE | 2024-01-17 22:59 | EDPHYS ---
Physician Documentation [facility] Name: Elena Prescott Age: 28 yrs Sex: Female : 1995 Arrival Date: 01/17/2024 Time: 22:10 Bed 7 Private MD: ED Physician Pola Smith HPI: 01/16 22:15 This 28 yrs old Female presents to ER via Unassigned with complaints of sp4 FACIAL NUMBNESS, ARM PROBLEM POST BLOOD DRAW. 06 02:46 Patient has complaint of right arm blood vessel problem and facial numbness. . 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 Flu vaccine is not up to date. - Infectious Disease History:: Denies. - Social history:: Smoking status: Reported history of juuling and/or vaping. Patient uses alcohol, occasionally. Patient/guardian denies using street drugs. - Family history:: not pertinent. ROS: 01/17 02:46 Constitutional: Negative for fever, chills, and weight loss, positive facial numbness sp4 and positive right arm blood vessel nodularity. All other systems are negative, Exam: 02:46 Constitutional: This is a well developed, well nourished patient who is awake, alert, sp4 and in no acute distress. Head/Face: Normocephalic, atraumatic. Eyes: Pupils equal round and reactive to light, extra-ocular motions intact. Lids and lashes normal. Conjunctiva and sclera are not injected. Cornea within normal limits. Periorbital areas with no swelling, redness, or edema. ENT: Nares patent. No nasal discharge, no septal abnormalities noted. Tympanic membranes are normal and external auditory canals are clear. Oropharynx with no redness, swelling, or masses, exudates, or evidence of obstruction, uvula midline. Mucous membranes moist. Neck: Trachea midline, no thyromegaly or masses palpated, and no cervical lymphadenopathy. Supple, full range of motion without nuchal rigidity, or vertebral point tenderness. Chest/axilla: Normal chest wall appearance and motion. Nontender with no deformity. No lesions are appreciated. Cardiovascular: Regular rate and rhythm with a normal S1 and S2. No gallops, murmurs, or rubs. Normal PMI, no JVD. No pulse deficits. Respiratory: Lungs have equal breath sounds bilaterally, clear to auscultation and percussion. No rales, rhonchi or wheezes noted. No increased work of breathing, no retractions or nasal flaring. Abdomen/GI: Soft, with normal bowel sounds. No distension or tympany. No guarding or rebound. No evidence of tenderness throughout. Back: No spinal tenderness. No costovertebral tenderness. Skin: Warm, dry with normal turgor. Normal color with no rashes, no lesions, and no evidence of cellulitis. MS/ Extremity: Pulses equal, no cyanosis. Neurovascular intact. Full, normal range of motion. Neuro: Awake and alert, GCS 15, oriented to person, place, time, and situation. Cranial nerves II-XII grossly intact. Motor strength 5/5 in all extremities. Sensory grossly intact. Psych: Awake, alert, with orientation to person, place and time. Behavior, mood, and affect are within normal limits Vital Signs: 01/16 22:20 BP 123 / 85; Pulse 79; Resp 17 S; Temp 98.1(O); Pulse Ox 100% on R/A; Weight 49.9 kg lg3 (R); Height 5 ft. 1 in. (R); 22:20 Body Mass Index 20.78 (49.90 kg, 154.94 cm) lg3 Fahad Coma Score: 22:30 Eye Response: spontaneous(4). Motor Response: obeys commands(6). Verbal Response: km8 oriented(5). Total: 15. 01/17 02:46 Eye Response: spontaneous(4). Motor Response: obeys commands(6). Verbal Response: sp4 oriented(5). Total: 15. MDM: 01/16 22:17 Patient medically screened. sp4 01/17 02:47 Differential Diagnosis Thrombophlebitis, facial numbness , side effect of medication.. sp4 Data reviewed: vital signs, nurses notes, old medical records. ED course: Patient states she is female transitioning to male. Patient takes testosterone injections, patient also consumes Topamax as migraine prophylaxis. No emergent problems identified today on exam. Advised to continue standard oral medications. Stable for discharge home.. Administered Medications: No medications were administered Disposition Summary: 01/17/24 22:58 Discharge Ordered Notes: Location: Home sp4 Problem: new sp4 Symptoms: have improved sp4 Condition: Stable sp4 Diagnosis - Phlebitis and thrombophlebitis of unspecified site sp4 - Thrombophlebitis right arm cephalic vein sp4 Followup: sp4 - With: Private Physician - When: 7 - 10 days - Reason: Recheck today's complaints Discharge Instructions: - Discharge Summary Sheet sp4 - Phlebitis, Kgrh-bo-Kaam sp4 Forms: - Patient Portal Instructions sp4 Signatures: Rohini Durand RN RN lg3 Pola Smith MD MD sp4
--- NOTE | 2024-01-17 22:59 | ER ---
Nurse's Notes [facility] Name: Elena Prescott Age: 28 yrs Sex: Female : 1995 Arrival Date: 01/17/2024 Time: 22:10 Bed 7 Private MD: Diagnosis: Phlebitis and thrombophlebitis of unspecified site;Thrombophlebitis right arm cephalic vein Presentation: 01/16 22:20 Chief complaint: Patient states: facial tingling beginning 1800 tonight. blood draw 3 lg3 weeks ago in right upper arm. multiple knots formed after. i don't feel good. Coronavirus screen: Client denies travel out of the [place] in the last 14 days. At this time, the client does not indicate any symptoms associated with coronavirus-19. Ebola Screen: No symptoms or risks identified at this time. Initial Sepsis Screen: Does the patient meet any 2 criteria? No. Patient's initial sepsis screen is negative. Does the patient have a suspected source of infection? No. Patient's initial sepsis screen is negative. Risk Assessment: Do you want to hurt yourself or someone else? Patient reports no desire to harm self or others. Onset of symptoms was January 17, 2024. 22:20 Method Of Arrival: Ambulatory lg3 22:20 Acuity: MILDRED 3 lg3 Triage Assessment: 22:23 General: Appears in no apparent distress. comfortable, Behavior is calm, cooperative. lg3 Pain: Denies pain. EENT: No deficits noted. No signs and/or symptoms were reported regarding the EENT system. Neuro: No deficits noted. Navarro Agitation-Sedation Scale (RASS): 0 - Alert and Calm Level of Consciousness is awake, alert, obeys commands, Oriented to person, place, time, situation, Reports numbness in face. Cardiovascular: No deficits noted. Denies chest pain, shortness of breath, Capillary refill < 3 seconds Clubbing of nail beds is absent JVD is absent Patient's skin is warm and dry. Respiratory: No deficits noted. Airway is patent Respiratory effort is even, unlabored, Respiratory pattern is regular, symmetrical. GI: No deficits noted. No signs and/or symptoms were reported involving the gastrointestinal system. : No deficits noted. No signs and/or symptoms were reported regarding the genitourinary system. Derm: No deficits noted. No signs and/or symptoms reported regarding the dermatologic system. Skin is intact, is healthy with good turgor, Skin is dry, Skin is normal, Skin temperature is warm. Musculoskeletal: No deficits noted. No signs and/or symptoms reported regarding the musculoskeletal system. Circulation, motion, and sensation intact. Range of motion: intact in all extremities. 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 Flu vaccine is not up to date. - Infectious Disease History:: Denies. - Social history:: Smoking status: Reported history of juuling and/or vaping. Patient uses alcohol, occasionally. Patient/guardian denies using street drugs. - Family history:: not pertinent. Screenin:30 [facility] ED Fall Risk Assessment (Adult) History of falling in the last 3 months, km8 including since admission No falls in past 3 months (0 pts) Confusion or Disorientation No (0 pts) Intoxicated or Sedated No (0 pts) Impaired Gait No (0 pts) Mobility Assist Device Used No (0 pt) Altered Elimination No (0 pt) Score/Fall Risk Level 0 - 2 = Low Risk Oriented to surroundings, Maintained a safe environment, Educated pt \T\ family on fall prevention, incl call for assistance when getting out of bed, Assessed \T\ reinforced patient's understanding of fall precautions. Abuse screen: Denies threats or abuse. Denies injuries from another. Nutritional screening: No deficits noted. Tuberculosis screening: No symptoms or risk factors identified. Assessment: 22:30 Reassessment: Patient appears in no apparent distress at this time. Patient and/or km8 family updated on plan of care and expected duration. Pain level reassessed. Patient is alert, oriented x 3, equal unlabored respirations, skin warm/dry/pink. General: Appears in no apparent distress. comfortable, Behavior is calm, cooperative, appropriate for age. Pain: Denies pain. Neuro: Level of Consciousness is awake, alert, obeys commands, Oriented to person, place, time, situation, Director Strategic Account Management are equal bilaterally Moves all extremities. Full function Gait is steady, Speech is normal, Facial symmetry appears normal, Pupils are PERRLA, Numbness in face. Cardiovascular: Denies chest pain, shortness of breath. Respiratory: Airway is patent Respiratory effort is even, unlabored, Respiratory pattern is regular, symmetrical. GI: No signs and/or symptoms were reported involving the gastrointestinal system. : No signs and/or symptoms were reported regarding the genitourinary system. EENT: No signs and/or symptoms were reported regarding the EENT system. Derm: No signs and/or symptoms reported regarding the dermatologic system. Skin is intact, is healthy with good turgor, Skin is dry, Skin is pink, warm \T\ dry. normal, Skin temperature is warm. Musculoskeletal: No signs and/or symptoms reported regarding the musculoskeletal system. Range of motion: intact in all extremities. Vital Signs: 22:20 BP 123 / 85; Pulse 79; Resp 17 S; Temp 98.1(O); Pulse Ox 100% on R/A; Weight 49.9 kg lg3 (R); Height 5 ft. 1 in. (R); 22:20 Body Mass Index 20.78 (49.90 kg, 154.94 cm) lg3 Fahad Coma Score: 22:30 Eye Response: spontaneous(4). Motor Response: obeys commands(6). Verbal Response: km8 oriented(5). Total: 15. 01/17 02:46 Eye Response: spontaneous(4). Motor Response: obeys commands(6). Verbal Response: sp4 oriented(5). Total: 15. ED Course: 01/16 22:12 Patient arrived in ED. jj6 22:15 Pola Smith MD is Attending Physician. sp4 22:22 Triage completed. lg3 22:27 Arm band placed on left wrist. lg3 22:30 Patient has correct armband on for positive identification. Bed in low position. Call km8 light in reach. Side rails up X 1. Provided Education on: call light use. 22:30 No provider procedures requiring assistance completed. km8 23:10 Patient did not have IV access during this emergency room visit. km8 Administered Medications: No medications were administered Medication: 22:30 VIS not applicable for this client. km8 Outcome: 22:58 Discharge ordered by . patricia 23:10 Discharged to home ambulatory, with significant other, km8 23:10 Condition: good 23:10 Discharge instructions given to patient, significant other, Instructed on discharge instructions, follow up and referral plans. Demonstrated understanding of instructions, follow-up care, 23:10 Patient left the ED. km8 Signatures: Rohini Durand, RN RN lg3 Yamilet Sherwood Sergey, MD MD sp4 Orly Al RN RN km8
[2024-01-17 23:36] VITALS: BP 123/85; TEMP 98.1; O2SAT 100
== END 2024-01-17 23:10 | disposition home or self-care (01) ==
LOC: ER 22:10
DX: I80.8 Phlebitis and thrombophlebitis of other sites (principal)
CPT/HCPCS: 99282